=== PATIENT | male | born 1955 | race Caucasian/White ===

== ENCOUNTER 2016-07-29 05:36 | Day surgery (SDC) | payer MEDICAID ==
[2016-07-28 15:18] LABS: HEMATOCRIT 44.8 % (42.0-54.0); HEMOGLOBIN 15.8 g/dL (13.5-17.5); MCH 32.4 pg (26.0-34.0); MCHC 35.3 g/dL (31.0-37.0); MCV 91.8 fL (80.0-100.0); MEAN PLATELET VOLUME 9.8 fL (7.4-10.4); RBC 4.88 10x6/uL (4.20-6.10); RDW 12.1 % (11.5-14.5); WBC 6.9 10x3/uL (4.8-10.8)
[~2016-07-29] VITALS: Ht 180.3 cm; Wt 81.6 kg
[~2016-07-29 05:36] MED LIST: BACTRIM DS TABL1 TAB PO; BENAZEPRIL HCL10 MG PO; LOTREL 10/20 CA1 CAP PO; LOVENOX40 MG/0.4 SC; MULTI-DAY VITAM1 TAB PO; NORVASC5 MG PO; PERCOCET 10/3251 TA1 PO; ZANTAC150 MG PO
[2016-07-29] MEDS ORDERED: NORVASC5 MG PO (06:10)
[2016-07-29 06:15] VITALS: BP 124/84; Ht 180.3 cm; Wt 81.6 kg
[2016-07-29] MEDS ORDERED: PERCOCET 10/3251 TA1 PO (14:45)
--- NOTE | 2016-07-29 16:19 | NUR ---
1545- IV D/C'D, PT TOLERATED. CATHETER INTACT 1605- DISCHARGE INSTRUCTIONS COMPLETED. PT AND VERBALIZED UNDERSTANDING. PAPERWORK SIGNED. 1615- DISCHARGED VIA WHEELCHAIR WITH , ISAIAH.
--- NOTE | 2016-08-28 10:48 | OP ---
PATIENT NAME: HILARY ASHRAF MEDICAL RECORD: [id number] :59 LOCATION:D.OPS ADMISSION DATE: SURGEON: MARIA DOLORES EPSTEIN MD DATE OF OPERATION: 07/29/2016 Orthopedic Surgery Operative Note PREOPERATIVE DIAGNOSIS: Anterior cruciate ligament repair with medial meniscus tear. POSTOPERATIVE DIAGNOSIS: Anterior cruciate ligament repair with medial meniscus tear. PROCEDURE: 1. Arthroscopic allograft anterior cruciate ligament repair of the right knee: 2. Arthroscopic partial medial meniscectomy. SURGEON: Maria Dolores Epstein MD. ANESTHESIA: General. INTRAOPERATIVE COMPLICATIONS: None. SUMMARY OF PATHOLOGIC FINDINGS: The patient was found to have a complete tear of the anterior cruciate ligament along with a complex tear of the posterior horn of the medial meniscus. OPERATIVE SUMMARY IN DETAIL: After obtaining the appropriate preoperative orthopedic surgery consents as well as anesthetic consultation, evaluation and clearance, the patient was brought to the operating room and placed on the operating table in supine position. After adequate general laryngeal mask was administered, tourniquet was placed about the proximal aspect of the right lower extremity. Right lower extremity was then prepped and draped in routine sterile fashion. The leg was elevated and exsanguinated, tourniquet inflated to 350 mmHg. Routine inferolateral portal was established followed by superomedial portal and inferomedial portal. Diagnostic arthroscopy did reveal the above findings. The ruptured ACL was debrided from the femoral aspect and the tibial aspect back to its origin insertion. The attention was then turned to the medial meniscus. Arthroscopic resector along with a meniscotome was utilized to debride the meniscus, complex tear of the posterior horn of the meniscus back to stable meniscal elements. Next, tibial tunnel was created for a size 11 robust allograft and then the femoral tunnel was drilled to approximately 35 mm in depth followed by a 4.5 mm airline transport pilot hole for passing of the TightRope. The graft having repaired on the back table was passed transtibially and tranfemoral with good results and then the TightRope was deployed seating the femoral component of the allograft. The distal tibial component was then affixed using a transcortical tibial post, tied tightly after the knee was ranged several times. This resulted in excellent stability of the knee. Wounds were copiously irrigated and closed in the usual fashion. Having completed this, sterile dressings were applied. The patient was awakened. Tourniquet was deflated. The patient was awakened, taken to recovery in stable condition. All final needle and sponge counts were correct. TRANSINT:[id number] Voice Confirmation ID: [id number] DOCUMENT ID: [id number] OPERATIVE REPORT [id number] HILARY ASHRAF MD, MARIA DOLORES RAMOS at 1048 CC: [id number] DICTATION DATE: 08/27/16 1001 [employer] VEHICLE CREWMEMBER: 08/27/16 1113 [facility] 07/29/[address] [id number]
== END 2016-07-29 16:15 | disposition home or self-care (01) ==
LOC: D.OPS 05:36 → D.PAN 08:15 → D.OPS 09:05 → D.PAN 10:00 → D.OPS 10:00
PROVIDERS: Anesthesiology
DX: S83.511A Sprain of anterior cruciate ligament of right knee, initial encounter (principal); S83.231A Complex tear of medial meniscus, current injury, right knee, initial encounter

== ENCOUNTER 2016-08-12 11:53 | Emergency (ER) | payer MEDICAID ==
[2016-07-29 06:15] VITALS: BMI 25.1
[2016-08-12 12:34] LABS: BASOPHILS 0.4 % (0.0-2.0); EOSINOPHILS 1.7 % (0-7); HEMATOCRIT 38.6 % (42.0-54.0); HEMOGLOBIN 13.2 g/dL (13.5-17.5); IMMATURE GRANULOCYTES 0.4 % (0-5); LYMPHOCYTES 15.9 % (15-50); MCH 31.4 pg (26.0-34.0); MCHC 34.2 g/dL (31.0-37.0); MCV 91.7 fL (80.0-100.0); MONOCYTES 7.7 % (2-11); NEUTROPHILS 73.9 % (40-80); RBC 4.21 10x6/uL (4.20-6.10); RDW 11.5 % (11.5-14.5); WBC 10.9 10x3/uL (4.8-10.8)
[2016-08-12 12:35] LABS: PLATELET COUNT 342 10x3/uL (130-400)
[2016-08-12 13:05] LABS: ALBUMIN 3.3 g/dL (3.4-5.0); ANION GAP 11.5 mmol/L (8-16); BILIRUBIN - TOTAL 0.27 mg/dL (0.2-1.3); CALCIUM 11.4 mg/dL (8.5-10.1); CARBON DIOXIDE 29.8 mmol/L (21.0-32.0); CREATININE - SERUM 1.1 mg/dL (0.6-1.3); POTASSIUM - SERUM 4.3 mmol/L (3.5-5.1); PROTEIN - SERUM 6.7 g/dL (6.4-8.2)
== END 2016-08-12 15:22 | disposition home or self-care (01) ==
LOC: D.ER 11:53
PROVIDERS: Emergency Medicine
DX: E86.0 Dehydration (principal); R55 Syncope and collapse; F17.200 Nicotine dependence, unspecified, uncomplicated

== ENCOUNTER 2016-10-25 08:00 | Outpatient (CLI) | payer MEDICAID ==
[2016-07-29 06:15] VITALS: BMI 25.1
== END 2016-10-25 23:59 | disposition home or self-care (01) ==
LOC: D.MRI 08:00
DX: M23.611 Other spontaneous disruption of anterior cruciate ligament of right knee (principal); X58.XXXA Exposure to other specified factors, initial encounter; Y93.89 Activity, other specified; Y92.89 Other specified places as the place of occurrence of the external cause

== ENCOUNTER → 2017-04-26 13:30 | Outpatient (CLI) | payer MEDICAID ==
[2016-07-29 06:15] VITALS: BMI 25.1
== END | disposition home or self-care (01) ==
LOC: D.RAD 11:30
DX: M25.511 Pain in right shoulder (principal)